=== PATIENT | male | born 1970 | race Caucasian/White ===

== ENCOUNTER 2023-12-13 19:52 | Inpatient (IN) | payer OTHER, MEDICAID ==
[~2023-12-13] VITALS: Ht 170.2 cm; Wt 154.2 kg
[2023-12-13 19:52] VITALS: BP 146/86; PULSE 62; RESP 17; TEMP 98.3; O2SAT 97
[2023-12-13] MEDS ORDERED: CEFEPIME 2,000 MG VIAL IV ONE (21:03)
[2023-12-13] MEDS: CEFEPIME 2,000 MG in DEXTROSE 5% 100 ML IV ONE (21:21)
[2023-12-13 21:30] LABS: BASOPHILS # (AUTO) 0.1 K/uL (0.00-0.22); BASOPHILS % (AUTO) 1.2 % (0.0-2.0); EOSINOPHILS # (AUTO) 0.1 K/uL (0-0.4); EOSINOPHILS % (AUTO) 0.6 % (0.0-4.0); HEMATOCRIT 43.1 % (36-52); HEMOGLOBIN 14.3 g/dL (12.0-18.0); LYMPHOCYTES # (AUTO) 2.1 K/uL (2.0-11.5); LYMPHOCYTES % (AUTO) 21.6 % (20.5-51.1); MEAN CORPUSCULAR HEMOGLOBIN 27 pg (27-31); MEAN CORPUSCULAR HGB CONC 33 g/dL (33-37); MEAN CORPUSCULAR VOLUME 81.5 fL (80-94); MONOCYTES # (AUTO) 0.8 K/uL (0.8-1.0); MONOCYTES % (AUTO) 7.9 % (1.7-9.3); NEUTROPHILS # (AUTO) 6.7 K/uL (1.8-7.7); NEUTROPHILS % (AUTO) 68.7 % (42.2-75.2); PLATELET COUNT (AUTO) 254 K/uL (140-450); RED BLOOD CELL COUNT(AUTO) 5.29 MIL/uL (4.20-6.10); WHITE BLOOD COUNT (AUTO) 9.7 K/uL (4.8-10.8)
[2023-12-13 21:42] LABS: ANION GAP 13.7 (8-16); CALCIUM 9.4 mg/dL (8.5-10.1); CARBON DIOXIDE 27.1 mmol/L (21-32); CREATININE 0.8 mg/dL (0.6-1.3); POTASSIUM 3.8 mmol/L (3.5-5.1)
[2023-12-13 21:51] LABS: APPEARANCE,URINE CLEAR (CLEAR); BILIRUBIN,URINE NEGATIVE (NEGATIVE); BLOOD, URINE NEGATIVE (NEGATIVE); COLOR,URINE YELLOW (YELLOW); LEUKOCYTE ESTERASE ,URINE NEGATIVE (NEGATIVE); NITRITE, URINE NEGATIVE (NEGATIVE); PROTEIN,URINE 1+ (NEGATIVE); UGLUCOSE 3+ (NEGATIVE); UROBILINOGEN,URINE 0.2 EU/dL (0.2 - 1)
[2023-12-13 21:54] LABS: INR 1.05 (0.8-1.2); PARTIAL THROMBOPLASTIN TIME 27.5 secs (22-35.6)
[2023-12-13] MEDS: ONDANSETRON 4 MG/2 ML VIAL IVP ONE (21:55)
[2023-12-13] MEDS: MORPHINE SULFATE 4 MG/ML SYR IVP ONE (21:57)
[2023-12-13] MEDS: LORazepam 1 MG TAB PO ONE ×2 (21:58→21:59)
[2023-12-13 22:01] LABS: ALANINE AMINOTRANSFERASE 55 U/L (12-78); ALBUMIN 3.8 g/dL (3.4-5.0); ALKALINE PHOSPHATASE 117 U/L (50-136); ASPARTATE AMINOTRANSFERASE 20 U/L (15-37); BILIRUBIN,DIRECT 0.1 mg/dL (0.0-0.3); TOTAL BILIRUBIN 0.6 mg/dL (0.0-1.0); TOTAL PROTEIN, SERUM 7.5 g/dL (6.4-8.2)
[2023-12-13] MEDS ORDERED: VANCOMYCIN 1,000 MG VIAL ONE (22:06)
[2023-12-13 22:08] LABS: BACTERIA,URINE FEW /HPF (None Seen); MUCUS,URINE None Seen /LPF (None Seen); RBC,URINE 0-5 /HPF (0-5); SQUAMOUS EPITHELIAL CELL,UR 0-3 (FEW) /LPF (0-3 (FEW)); TRICHOMONAS,URINE None Seen /HPF (None Seen); WBC,URINE 0-5 /HPF (0-5); WHITE BLOOD CELL CASTS,URINE None Seen /LPF (None Seen); YEAST,URINE None Seen /HPF (None Seen)
[2023-12-13] MEDS: VANCOMYCIN 1,000 MG in DEXTROSE 5% 250 ML IV ONE (22:23)
[2023-12-13] MEDS: NACL 0.9% 1,000 ML IV SCH (22:40)
[2023-12-13 23:55] VITALS: BP 126/66; PULSE 60; RESP 18; TEMP 98.3; O2SAT 97
[2023-12-14] MEDS: MORPHINE SULFATE 2 MG/ML SYR IVP PRN (02:05)
[2023-12-14] MEDS ORDERED: LORazepam 2 MG/ML VIAL IM/IVP PRN (04:15)
[2023-12-14 06:38] LABS: BASOPHILS # (AUTO) 0.1 K/uL (0.00-0.22); BASOPHILS % (AUTO) 0.8 % (0.0-2.0); EOSINOPHILS # (AUTO) 0.1 K/uL (0-0.4); EOSINOPHILS % (AUTO) 1.5 % (0.0-4.0); HEMATOCRIT 43.2 % (36-52); HEMOGLOBIN 14.6 g/dL (12.0-18.0); LYMPHOCYTES # (AUTO) 2.3 K/uL (2.0-11.5); LYMPHOCYTES % (AUTO) 27.7 % (20.5-51.1); MEAN CORPUSCULAR HEMOGLOBIN 28 pg (27-31); MEAN CORPUSCULAR HGB CONC 34 g/dL (33-37); MEAN CORPUSCULAR VOLUME 82.4 fL (80-94); MONOCYTES # (AUTO) 0.7 K/uL (0.8-1.0); NEUTROPHILS # (AUTO) 5.2 K/uL (1.8-7.7); PLATELET COUNT (AUTO) 219 K/uL (140-450); RED BLOOD CELL COUNT(AUTO) 5.24 MIL/uL (4.20-6.10); RED CELL DISTRIBUTION WIDTH 15.1 % (11.6-13.7); WHITE BLOOD COUNT (AUTO) 8.4 K/uL (4.8-10.8)
[2023-12-14 07:05] LABS: CALCIUM 9.5 mg/dL (8.5-10.1); CREATININE 0.9 mg/dL (0.6-1.3)
[2023-12-14 07:47] LABS: MAGNESIUM 1.9 mg/dL (1.8-2.4); PHOSPHORUS 4.5 mg/dL (2.5-4.9)
[2023-12-14] MEDS ORDERED: ONDANSETRON 4 MG/2 ML VIAL IM/IVP PRN (08:15)
[2023-12-14] MEDS ORDERED: guaiFENesin DM 200/20 MG-10 ML 10 ML UDC PO PRN (08:15)
[2023-12-14] MEDS ORDERED: KETOROLAC 30 MG/ML VIAL IVP PRN (08:15)
[2023-12-14] MEDS ORDERED: ZOLPIDEM 5 MG TAB PO PRN (08:15)
[2023-12-14] MEDS ORDERED: POTASSIUM CHLORIDE 10 MEQ TABER PO PRN (08:15)
[2023-12-14] MEDS ORDERED: ACETAMINOPHEN 325 MG TAB PO PRN (08:15)
[2023-12-14] MEDS ORDERED: DOCUSATE SODIUM 100 MG GELCAP PO PRN (08:15)
[2023-12-14] MEDS ORDERED: oxyCODONE/APAP 5/325 MG 1 TAB TAB PO PRN (08:15)
[2023-12-14] MEDS ORDERED: LORazepam 1 MG TAB PO PRN (08:35)
[2023-12-14] MEDS ORDERED: LOSARTAN 25 MG TAB PO SCH (09:00)
[2023-12-14] MEDS ORDERED: DEXTROSE 50% 50 ML SYR IVP PRN (09:00)
[2023-12-14] MEDS ORDERED: INSULIN LISPRO SLIDING SCALE 100 UNITS/ML VIAL SUBQ PRN (09:00)
[2023-12-14] MEDS ORDERED: CEFEPIME 1,000 MG in DEXTROSE 5% 50 ML IV SCH (09:00)
[2023-12-14] MEDS ORDERED: PANTOPRAZOLE 40 MG TABEC PO SCH (09:00)
[2023-12-14] MEDS ORDERED: BLOOD GLUCOSE MONITORING 1 DEV DEV FS SCH (11:30)
== END 2023-12-14 09:42 | disposition left against medical advice (07) | DRG 728 ==
LOC: MED 19:52 → EEVIPCON 22:40 → MTU 22:40 → MMU 23:29
PROVIDERS: ADMIT Student in an Organized Health Care Education/Training Program; ATTEND Student in an Organized Health Care Education/Training Program
DX: N41.9 Inflammatory disease of prostate, unspecified (principal); N39.0 Urinary tract infection, site not specified; Z68.43 Body mass index [BMI] 50.0-59.9, adult; E66.01 Morbid (severe) obesity due to excess calories; E11.9 Type 2 diabetes mellitus without complications; Z53.29 Procedure and treatment not carried out because of patient's decision for other reasons; I11.0 Hypertensive heart disease with heart failure; I50.9 Heart failure, unspecified; Z79.899 Other long term (current) drug therapy
CPT/HCPCS: 36415; 71045; 80048; 80076; 81001; 83605; 83735; 83880; 84100; 84484; 85025; 85610; 85730; 87040; 87081; 87086; 87491; 93005; 96365; 96367; 96375; 99285; J0692; J2060; J2270; J2405; J3370

== ENCOUNTER 2024-01-17 20:24 | Emergency (ER) | payer OTHER, MEDICAID ==
[~2024-01-17] VITALS: Ht 172.7 cm; Wt 154.2 kg
[2024-01-17 20:43] VITALS: BP 150/94; PULSE 94; RESP 20; TEMP 98.5
[2024-01-17 21:48] LABS: APPEARANCE,URINE CLEAR (CLEAR); BILIRUBIN,URINE NEGATIVE (NEGATIVE); BLOOD, URINE NEGATIVE (NEGATIVE); COLOR,URINE YELLOW (YELLOW); LEUKOCYTE ESTERASE ,URINE NEGATIVE (NEGATIVE); NITRITE, URINE NEGATIVE (NEGATIVE); PROTEIN,URINE 1+ (NEGATIVE); UGLUCOSE TRACE (NEGATIVE); UROBILINOGEN,URINE 0.2 EU/dL (0.2 - 1)
[2024-01-17 21:53] LABS: BACTERIA,URINE FEW /HPF (None Seen); MUCUS,URINE 1+ /LPF (None Seen); RBC,URINE 0-5 /HPF (0-5); SQUAMOUS EPITHELIAL CELL,UR 0-3 (FEW) /LPF (0-3 (FEW)); WBC,URINE 0-5 /HPF (0-5)
--- NOTE | 2024-01-17 23:07 | NUR ---
PATIENT ELOPED FROM FACILITY. DISCHARGE INSTRUCTIONS NOT GIVEN TO PATIENT. DR. JOEL NOTIFIED.
== END 2024-01-17 23:08 | disposition home or self-care (01) ==
LOC: MED 20:24
DX: Z71.1 Person with feared health complaint in whom no diagnosis is made (principal); E11.9 Type 2 diabetes mellitus without complications; Z86.73 Personal history of transient ischemic attack (TIA), and cerebral infarction without residual deficits
CPT/HCPCS: 81001; 99283